=== PATIENT | female | born 1945 | race Caucasian/White ===

== ENCOUNTER 2022-03-02 12:29 | Inpatient (IN) | payer MEDICARE ==
[2022-03-02] MEDS ORDERED: Ondansetron ODT 4 MG TAB SL PRN (15:57)
[2022-03-02] MEDS ORDERED: Bisacodyl 5 MG TAB PO PRN (15:57)
[2022-03-02] MEDS ORDERED: Senokot S 8.6-50 MG TAB PO PRN (15:57)
[2022-03-02] MEDS ORDERED: Acetaminophen 325 MG TAB PO PRN (19:53)
[2022-03-02] MEDS: HYDROcodone/Acetaminophen 5/325 mg Tablet PO PRN (20:55)
[2022-03-02] MEDS: CeleCOXIB 100 MG CAP PO SCH (20:58)
[2022-03-02] MEDS: Aspirin 81 mg Enteric Coated Tablet PO SCH (20:59)
[2022-03-02] MEDS ORDERED: Famotidine 20 MG TAB PO SCH (21:00)
[2022-03-02] MEDS: Famotidine 20 MG TAB PO SCH (21:54)
[2022-03-03] MEDS: Levothyroxine Sodium 75 MCG TAB PO SCH (06:08)
[2022-03-03 08:55] LABS: SARS-CoV-2 NAA Rapid Test Not Detected (NotDetected)
[2022-03-03] MEDS: Aspirin 81 mg Enteric Coated Tablet PO SCH ×2 (09:14→21:14)
[2022-03-03] MEDS: Famotidine 20 MG TAB PO SCH ×2 (09:14→21:14)
[2022-03-03] MEDS: Rosuvastatin 10 MG TAB PO SCH (09:14)
[2022-03-03] MEDS: Spironolactone 25 MG TAB PO SCH (09:14)
[2022-03-03] MEDS: CeleCOXIB 100 MG CAP PO SCH ×2 (09:15→21:14)
[2022-03-04] MEDS: Levothyroxine Sodium 75 MCG TAB PO SCH (05:47)
[2022-03-04 05:55] LABS: #Basophils 0.1 thou/uL (0.0-0.2); #Eosinphils 0.2 thou/uL (0.0-0.7); #Lymphocytes 1.1 thou/uL (1.20-3.40); #Monocytes 0.6 thou/uL (0.11-0.59); #Neutrophils 9.1 thou/uL (1.40-6.50); %Basophils 0.9 % (0.0-1.0); %Lymphocytes 10.1 % (21.0-51.0); %Monocytes 5.7 % (0.0-10.0); %Neutrophils 81.3 % (42.0-75.0); Mean Corpuscular HGB CONC 33.1 g/dL (32.0-36.0); Mean Corpuscular Hemoglobin 32.6 pg (27.0-31.0); Mean Corpuscular Volume 98.4 fl (78.0-98.0); Platelet Count 188 10x3/uL (130-400); Red Blood Cell (RBC) Count 2.14 mill/uL (4.20-5.40); White Blood Cell (WBC) Count 11.2 10x3/uL (4.8-10.8)
[2022-03-04 06:12] LABS: ALT (SGPT) 22 U/L (8-55); AST (SGOT) 37 U/L (5-34); Albumin 2.6 g/dL (3.4-4.8); Alkaline Phosphatase 115 U/L (40-110); Anion Gap 10 mmol/L (10-20); BUN (Urea Nitrogen) 15 mg/dL (9.8-20.1); Bilirubin, Total 0.5 mg/dL (0.2-1.2); Calc. Creatinine Clearance 85 mL/min (70-130); Calcium 8.6 mg/dL (7.8-10.44); Carbon Dioxide 22 mmol/L (23-31); Chloride 107 mmol/L (98-107); Estimated GFR 89; Globulin 1.9 g/dL (2.4-3.5); Glucose 81 mg/dL (83-110); Potassium 3.7 mmol/L (3.5-5.1); Protein, Total 4.5 g/dL (5.8-8.1); Sodium 135 mmol/L (136-145)
[2022-03-04] MEDS: HYDROcodone/Acetaminophen 5/325 mg Tablet PO PRN (08:58)
[2022-03-04] MEDS: Spironolactone 25 MG TAB PO SCH (09:00)
[2022-03-04] MEDS: CeleCOXIB 100 MG CAP PO SCH ×2 (09:00→20:18)
[2022-03-04] MEDS: Famotidine 20 MG TAB PO SCH (09:01)
[2022-03-04] MEDS: Rosuvastatin 10 MG TAB PO SCH ×2 (09:01→20:17)
[2022-03-04] MEDS: Aspirin 81 mg Enteric Coated Tablet PO SCH ×2 (09:06→20:18)
[2022-03-04] MEDS: Ferrous Sulfate 325 MG TAB PO SCH (18:05)
[2022-03-05] MEDS: Levothyroxine Sodium 75 MCG TAB PO SCH (05:51)
[2022-03-05] MEDS: Aspirin 81 mg Enteric Coated Tablet PO SCH ×2 (09:09→20:49)
[2022-03-05] MEDS: Spironolactone 25 MG TAB PO SCH (09:09)
[2022-03-05] MEDS: Ferrous Sulfate 325 MG TAB PO SCH ×2 (09:09→16:38)
[2022-03-05] MEDS: CeleCOXIB 100 MG CAP PO SCH ×2 (09:09→20:47)
[2022-03-05] MEDS ORDERED: FLU VACC QS2022-23(65YR UP)/PF 240 MCG/0.7 ML SYRINGE IM ONE (19:00)
[2022-03-05] MEDS: Rosuvastatin 10 MG TAB PO SCH (20:49)
[2022-03-06] MEDS: Levothyroxine Sodium 75 MCG TAB PO SCH (05:43)
[2022-03-06] MEDS: Dronabinol 2.5 MG CAP PO SCH ×2 (08:00→16:38)
[2022-03-06] MEDS: HYDROcodone/Acetaminophen 5/325 mg Tablet PO PRN (08:14)
[2022-03-06] MEDS: CeleCOXIB 100 MG CAP PO SCH ×2 (08:16→21:18)
[2022-03-06] MEDS: Ferrous Sulfate 325 MG TAB PO SCH ×2 (08:16→18:11)
[2022-03-06] MEDS: Aspirin 81 mg Enteric Coated Tablet PO SCH ×2 (08:17→21:19)
[2022-03-06] MEDS: Spironolactone 25 MG TAB PO SCH (11:55)
[2022-03-06] MEDS: EXEMESTANE PO SCH (12:53)
[2022-03-06] MEDS: Rosuvastatin 10 MG TAB PO SCH (21:18)
[2022-03-07] MEDS: Levothyroxine Sodium 75 MCG TAB PO SCH (05:33)
[2022-03-07] MEDS: CeleCOXIB 100 MG CAP PO SCH ×2 (08:39→20:15)
[2022-03-07] MEDS: Ferrous Sulfate 325 MG TAB PO SCH ×2 (08:41→16:03)
[2022-03-07] MEDS: Spironolactone 25 MG TAB PO SCH (08:41)
[2022-03-07] MEDS: Dronabinol 2.5 MG CAP PO SCH ×2 (08:41→16:03)
[2022-03-07] MEDS: Aspirin 81 mg Enteric Coated Tablet PO SCH ×2 (08:41→20:15)
[2022-03-07 08:58] LABS: #Eosinphils 0.1 thou/uL (0.0-0.7); #Lymphocytes 0.7 thou/uL (1.20-3.40); #Monocytes 0.3 thou/uL (0.11-0.59); #Neutrophils 7.9 thou/uL (1.40-6.50); %Basophils 0.3 % (0.0-1.0); %Eosinophils 1.5 % (0.0-10.0); %Lymphocytes 7.7 % (21.0-51.0); %Monocytes 3.2 % (0.0-10.0); %Neutrophils 87.2 % (42.0-75.0); Hemoglobin 8.3 g/dL (12.0-16.0); Mean Corpuscular Hemoglobin 33.3 pg (27.0-31.0); Mean Platelet Volume 6.5 fL (7.4-10.4); Platelet Count 212 10x3/uL (130-400); RBC Distribution Width 19.7 % (11.5-14.5); Red Blood Cell (RBC) Count 2.49 mill/uL (4.20-5.40); White Blood Cell (WBC) Count 9.1 10x3/uL (4.8-10.8)
[2022-03-07 09:30] LABS: Platelet Morphology Comment Appears Adequate
[2022-03-07 09:31] LABS: Anisocytosis SLIGHT = 6-15 cells (100X) (0-5/hpf); Macrocytosis SLIGHT = 6-15 cells (100X) (0-5/hpf); Microcytosis SLIGHT = 6-15 cells (100X) (0-5/hpf)
[2022-03-07 09:32] LABS: Hypochromia SLIGHT = 6-15 cells (100X) (0-5/hpf); Polychromasia SLIGHT = 2-3 cells (100X) (0-2/hpf)
[2022-03-07] MEDS: EXEMESTANE PO SCH (12:29)
[2022-03-07] MEDS: HYDROcodone/Acetaminophen 5/325 mg Tablet PO PRN (16:02)
[2022-03-07] MEDS: Rosuvastatin 10 MG TAB PO SCH (20:15)
[2022-03-08] MEDS: Levothyroxine Sodium 75 MCG TAB PO SCH (06:33)
[2022-03-08] MEDS: CeleCOXIB 100 MG CAP PO SCH ×2 (07:56→22:00)
[2022-03-08] MEDS: Aspirin 81 mg Enteric Coated Tablet PO SCH ×2 (07:58→22:00)
[2022-03-08] MEDS: Dronabinol 2.5 MG CAP PO SCH ×2 (07:58→16:54)
[2022-03-08] MEDS: Ferrous Sulfate 325 MG TAB PO SCH ×2 (07:58→16:54)
[2022-03-08] MEDS: Spironolactone 25 MG TAB PO SCH (08:01)
[2022-03-08] MEDS: HYDROcodone/Acetaminophen 5/325 mg Tablet PO PRN (10:49)
[2022-03-08] MEDS: EXEMESTANE PO SCH (12:08)
[2022-03-08] MEDS: Rosuvastatin 10 MG TAB PO SCH (22:00)
[2022-03-09] MEDS: Levothyroxine Sodium 75 MCG TAB PO SCH (06:06)
[2022-03-09] MEDS: Ferrous Sulfate 325 MG TAB PO SCH ×2 (07:35→16:52)
[2022-03-09] MEDS: Aspirin 81 mg Enteric Coated Tablet PO SCH ×2 (07:36→20:36)
[2022-03-09] MEDS: CeleCOXIB 100 MG CAP PO SCH ×2 (07:36→20:35)
[2022-03-09] MEDS: Dronabinol 2.5 MG CAP PO SCH ×2 (07:46→16:52)
[2022-03-09] MEDS: EXEMESTANE PO SCH (14:47)
[2022-03-09] MEDS: Rosuvastatin 10 MG TAB PO SCH (20:36)
[2022-03-10] MEDS: Levothyroxine Sodium 75 MCG TAB PO SCH (06:29)
[2022-03-10] MEDS: CeleCOXIB 100 MG CAP PO SCH ×2 (07:23→20:28)
[2022-03-10] MEDS: Ferrous Sulfate 325 MG TAB PO SCH ×2 (07:23→16:07)
[2022-03-10] MEDS: Aspirin 81 mg Enteric Coated Tablet PO SCH ×2 (07:23→20:28)
[2022-03-10] MEDS: Dronabinol 2.5 MG CAP PO SCH ×2 (07:23→16:08)
[2022-03-10] MEDS: EXEMESTANE PO SCH (12:37)
[2022-03-10] MEDS: Rosuvastatin 10 MG TAB PO SCH (20:28)
[2022-03-11] MEDS: Levothyroxine Sodium 75 MCG TAB PO SCH (06:17)
[2022-03-11] MEDS: Ferrous Sulfate 325 MG TAB PO SCH ×2 (08:08→16:10)
[2022-03-11] MEDS: CeleCOXIB 100 MG CAP PO SCH ×2 (08:09→20:57)
[2022-03-11] MEDS: Dronabinol 2.5 MG CAP PO SCH ×2 (08:10→16:10)
[2022-03-11] MEDS: Aspirin 81 mg Enteric Coated Tablet PO SCH ×2 (08:15→20:58)
[2022-03-11] MEDS: EXEMESTANE PO SCH (13:03)
[2022-03-11] MEDS: Rosuvastatin 10 MG TAB PO SCH (20:57)
[2022-03-12] MEDS: Levothyroxine Sodium 75 MCG TAB PO SCH (05:29)
[2022-03-12] MEDS: Dronabinol 2.5 MG CAP PO SCH ×2 (07:35→17:13)
[2022-03-12] MEDS: CeleCOXIB 100 MG CAP PO SCH ×2 (08:43→20:43)
[2022-03-12] MEDS: Ferrous Sulfate 325 MG TAB PO SCH ×2 (08:44→16:45)
[2022-03-12] MEDS: Aspirin 81 mg Enteric Coated Tablet PO SCH ×2 (08:44→20:43)
[2022-03-12] MEDS: EXEMESTANE PO SCH (11:54)
[2022-03-12] MEDS: Rosuvastatin 10 MG TAB PO SCH (20:43)
[2022-03-13] MEDS: Levothyroxine Sodium 75 MCG TAB PO SCH (05:52)
[2022-03-13] MEDS: Ferrous Sulfate 325 MG TAB PO SCH ×2 (07:43→17:33)
[2022-03-13] MEDS: Aspirin 81 mg Enteric Coated Tablet PO SCH ×2 (07:43→21:18)
[2022-03-13] MEDS: Dronabinol 2.5 MG CAP PO SCH ×2 (07:43→17:00)
[2022-03-13] MEDS: CeleCOXIB 100 MG CAP PO SCH ×2 (07:44→21:18)
[2022-03-13 11:43] LABS: Anion Gap 14 mmol/L (10-20); BUN (Urea Nitrogen) 15 mg/dL (9.8-20.1); Calc. Creatinine Clearance 76 mL/min (70-130); Calcium 8.7 mg/dL (7.8-10.44); Carbon Dioxide 17 mmol/L (23-31); Chloride 108 mmol/L (98-107); Estimated GFR 79; Glucose 83 mg/dL (83-110); Potassium 4.4 mmol/L (3.5-5.1); Sodium 135 mmol/L (136-145)
[2022-03-13] MEDS: EXEMESTANE PO SCH (12:14)
[2022-03-13] MEDS: Rosuvastatin 10 MG TAB PO SCH (21:18)
[2022-03-14] MEDS: Levothyroxine Sodium 75 MCG TAB PO SCH (05:48)
[2022-03-14] MEDS: Ferrous Sulfate 325 MG TAB PO SCH ×2 (08:37→16:46)
[2022-03-14] MEDS: Dronabinol 2.5 MG CAP PO SCH ×2 (08:37→16:46)
[2022-03-14] MEDS: CeleCOXIB 100 MG CAP PO SCH ×2 (08:37→20:38)
[2022-03-14] MEDS: Aspirin 81 mg Enteric Coated Tablet PO SCH ×2 (08:37→20:38)
[2022-03-14] MEDS: EXEMESTANE PO SCH (11:09)
[2022-03-14] MEDS: Acetaminophen 325 MG TAB PO PRN (18:05)
[2022-03-14] MEDS: Rosuvastatin 10 MG TAB PO SCH (20:38)
[2022-03-15] MEDS: Levothyroxine Sodium 75 MCG TAB PO SCH (05:49)
[2022-03-15] MEDS: Ferrous Sulfate 325 MG TAB PO SCH ×2 (07:21→16:36)
[2022-03-15] MEDS: Dronabinol 2.5 MG CAP PO SCH ×2 (07:21→16:36)
[2022-03-15] MEDS: CeleCOXIB 100 MG CAP PO SCH ×2 (08:04→20:28)
[2022-03-15] MEDS: Aspirin 81 mg Enteric Coated Tablet PO SCH ×2 (08:04→20:30)
[2022-03-15] MEDS: EXEMESTANE PO SCH (11:52)
[2022-03-15] MEDS: Rosuvastatin 10 MG TAB PO SCH (20:30)
[2022-03-16] MEDS: Levothyroxine Sodium 75 MCG TAB PO SCH (06:00)
[2022-03-16] MEDS: Ferrous Sulfate 325 MG TAB PO SCH ×2 (08:45→17:30)
[2022-03-16] MEDS: CeleCOXIB 100 MG CAP PO SCH ×2 (08:46→20:14)
[2022-03-16] MEDS: Acetaminophen 325 MG TAB PO PRN (08:51)
[2022-03-16] MEDS: Dronabinol 2.5 MG CAP PO SCH ×2 (08:51→17:30)
[2022-03-16] MEDS: Aspirin 81 mg Enteric Coated Tablet PO SCH ×2 (08:51→20:14)
[2022-03-16] MEDS: EXEMESTANE PO SCH (12:40)
[2022-03-16] MEDS: HYDROcodone/Acetaminophen 5/325 mg Tablet PO PRN (15:27)
[2022-03-16] MEDS: Rosuvastatin 10 MG TAB PO SCH (20:14)
[2022-03-17] MEDS: Levothyroxine Sodium 75 MCG TAB PO SCH (06:09)
[2022-03-17] MEDS: CeleCOXIB 100 MG CAP PO SCH ×2 (10:24→21:11)
[2022-03-17] MEDS: Ferrous Sulfate 325 MG TAB PO SCH ×2 (10:24→16:42)
[2022-03-17] MEDS: Dronabinol 2.5 MG CAP PO SCH ×2 (10:25→16:42)
[2022-03-17] MEDS: Aspirin 81 mg Enteric Coated Tablet PO SCH ×2 (10:25→21:11)
[2022-03-17] MEDS: Acetaminophen 325 MG TAB PO PRN (10:29)
[2022-03-17] MEDS: EXEMESTANE PO SCH (11:59)
[2022-03-17] MEDS: Rosuvastatin 10 MG TAB PO SCH (21:11)
[2022-03-18] MEDS: Levothyroxine Sodium 75 MCG TAB PO SCH (06:12)
[2022-03-18] MEDS: Acetaminophen 325 MG TAB PO PRN (07:57)
[2022-03-18] MEDS: Aspirin 81 mg Enteric Coated Tablet PO SCH ×2 (08:00→21:01)
[2022-03-18] MEDS: CeleCOXIB 100 MG CAP PO SCH ×2 (08:00→21:01)
[2022-03-18] MEDS: Ferrous Sulfate 325 MG TAB PO SCH ×2 (08:01→17:14)
[2022-03-18] MEDS: Dronabinol 2.5 MG CAP PO SCH ×2 (08:01→17:14)
[2022-03-18] MEDS: EXEMESTANE PO SCH (11:08)
[2022-03-18] MEDS: Rosuvastatin 10 MG TAB PO SCH (21:01)
[2022-03-19] MEDS: Levothyroxine Sodium 75 MCG TAB PO SCH (05:51)
[2022-03-19] MEDS: Dronabinol 2.5 MG CAP PO SCH ×2 (08:01→16:51)
[2022-03-19] MEDS: CeleCOXIB 100 MG CAP PO SCH ×2 (08:01→20:36)
[2022-03-19] MEDS: Aspirin 81 mg Enteric Coated Tablet PO SCH ×2 (08:03→20:37)
[2022-03-19] MEDS: Ferrous Sulfate 325 MG TAB PO SCH ×2 (08:03→16:51)
[2022-03-19 08:48] LABS: Anion Gap 12 mmol/L (10-20); BUN (Urea Nitrogen) 14 mg/dL (9.8-20.1); Calc. Creatinine Clearance 72 mL/min (70-130); Carbon Dioxide 24 mmol/L (23-31); Chloride 107 mmol/L (98-107); Estimated GFR 73; Glucose 90 mg/dL (83-110); Potassium 4.5 mmol/L (3.5-5.1); Sodium 138 mmol/L (136-145)
[2022-03-19 08:52] LABS: #Basophils 0.1 thou/uL (0.0-0.2); #Eosinphils 0.3 thou/uL (0.0-0.7); #Lymphocytes 1.3 thou/uL (1.20-3.40); #Monocytes 0.4 thou/uL (0.11-0.59); #Neutrophils 3.7 thou/uL (1.40-6.50); %Basophils 1.3 % (0.0-1.0); %Lymphocytes 21.6 % (21.0-51.0); %Monocytes 7.5 % (0.0-10.0); %Neutrophils 63.6 % (42.0-75.0); Hemoglobin 9.7 g/dL (12.0-16.0); Mean Corpuscular HGB CONC 30.5 g/dL (32.0-36.0); Mean Corpuscular Hemoglobin 32.1 pg (27.0-31.0); Mean Platelet Volume 6.1 fL (7.4-10.4); Platelet Count 287 10x3/uL (130-400); RBC Distribution Width 17.7 % (11.5-14.5); Red Blood Cell (RBC) Count 3.01 mill/uL (4.20-5.40); White Blood Cell (WBC) Count 5.8 10x3/uL (4.8-10.8)
[2022-03-19] MEDS: Acetaminophen 325 MG TAB PO PRN (10:01)
[2022-03-19] MEDS: EXEMESTANE PO SCH (12:30)
[2022-03-19] MEDS: Rosuvastatin 10 MG TAB PO SCH (20:35)
[2022-03-20] MEDS: Levothyroxine Sodium 75 MCG TAB PO SCH (05:36)
[2022-03-20] MEDS: Dronabinol 2.5 MG CAP PO SCH ×2 (08:32→16:48)
[2022-03-20] MEDS: Aspirin 81 mg Enteric Coated Tablet PO SCH ×2 (08:32→20:48)
[2022-03-20] MEDS: Ferrous Sulfate 325 MG TAB PO SCH ×2 (08:32→16:48)
[2022-03-20] MEDS: CeleCOXIB 100 MG CAP PO SCH ×2 (08:33→20:48)
[2022-03-20] MEDS: EXEMESTANE PO SCH (12:30)
[2022-03-20] MEDS: Rosuvastatin 10 MG TAB PO SCH (20:48)
[2022-03-21] MEDS: Levothyroxine Sodium 75 MCG TAB PO SCH (05:58)
[2022-03-21] MEDS: Ferrous Sulfate 325 MG TAB PO SCH ×2 (08:06→16:38)
[2022-03-21] MEDS: Dronabinol 2.5 MG CAP PO SCH ×2 (08:06→16:38)
[2022-03-21] MEDS: CeleCOXIB 100 MG CAP PO SCH ×2 (08:06→21:10)
[2022-03-21] MEDS: Aspirin 81 mg Enteric Coated Tablet PO SCH ×2 (08:07→21:11)
[2022-03-21] MEDS: Acetaminophen 325 MG TAB PO PRN ×2 (08:37→15:06)
[2022-03-21] MEDS: EXEMESTANE PO SCH (12:06)
[2022-03-21] MEDS: Rosuvastatin 10 MG TAB PO SCH (21:11)
[2022-03-22 04:00] VITALS: BMI 35.0
[2022-03-22] MEDS: Levothyroxine Sodium 75 MCG TAB PO SCH (06:06)
[2022-03-22] MEDS: CeleCOXIB 100 MG CAP PO SCH ×2 (07:50→20:38)
[2022-03-22] MEDS: Ferrous Sulfate 325 MG TAB PO SCH ×2 (07:50→16:29)
[2022-03-22] MEDS: Aspirin 81 mg Enteric Coated Tablet PO SCH ×2 (07:50→20:38)
[2022-03-22] MEDS: Dronabinol 2.5 MG CAP PO SCH ×2 (07:50→16:29)
[2022-03-22] MEDS: Acetaminophen 325 MG TAB PO PRN ×2 (07:53→15:44)
[2022-03-22] MEDS: EXEMESTANE PO SCH (11:48)
[2022-03-22] MEDS: Rosuvastatin 10 MG TAB PO SCH (20:37)
[2022-03-23] MEDS: Levothyroxine Sodium 75 MCG TAB PO SCH (05:22)
[2022-03-23] MEDS: CeleCOXIB 100 MG CAP PO SCH ×2 (08:43→20:49)
[2022-03-23] MEDS: Dronabinol 2.5 MG CAP PO SCH ×2 (08:45→17:50)
[2022-03-23] MEDS: Aspirin 81 mg Enteric Coated Tablet PO SCH ×2 (08:45→20:49)
[2022-03-23] MEDS: Ferrous Sulfate 325 MG TAB PO SCH ×2 (08:45→17:50)
[2022-03-23] MEDS: EXEMESTANE PO SCH (12:18)
[2022-03-23 16:38] LABS: Bilirubin Negative (Negative); Blood, Urine Small (Negative); CAUTI Indications for Culture Dysuria,urgency,freq; Clarity Cloudy (Clear); Glucose, Urine (Dipstick) Negative (Negative); Ketone, Urine Negative (Negative); Leukocyte Moderate (Negative); Nitrite Negative (Negative); Protein, Urine (Dipstick) Trace mg/dL (Neg-Trace); Urobilinogen 0.2 mg/dL (Less than 2); pH, Urine 5.5 (5.0-9.0)
[2022-03-23 16:48] LABS: Bacteria/HPF 2+ HPF (None Seen); Squamous Epithelial 0-3 HPF (0-3)
[2022-03-23 16:49] LABS: Calcium Oxalate Crystals 1+ HPF (None Seen)
[2022-03-23] MEDS: Cephalexin 500 MG CAP PO SCH (20:50)
[2022-03-23] MEDS: Rosuvastatin 10 MG TAB PO SCH (20:50)
[2022-03-24] MEDS: Levothyroxine Sodium 75 MCG TAB PO SCH (05:33)
[2022-03-24] MEDS: CeleCOXIB 100 MG CAP PO SCH ×2 (07:17→20:16)
[2022-03-24] MEDS: Dronabinol 2.5 MG CAP PO SCH ×2 (07:17→17:01)
[2022-03-24] MEDS: Aspirin 81 mg Enteric Coated Tablet PO SCH ×2 (07:18→20:15)
[2022-03-24] MEDS: Ferrous Sulfate 325 MG TAB PO SCH ×2 (07:18→17:01)
[2022-03-24] MEDS: Cephalexin 500 MG CAP PO SCH ×2 (07:18→20:16)
[2022-03-24] MEDS: EXEMESTANE PO SCH (12:09)
[2022-03-24] MEDS: Rosuvastatin 10 MG TAB PO SCH (20:15)
[2022-03-25] MEDS: Levothyroxine Sodium 75 MCG TAB PO SCH (05:51)
[2022-03-25 06:06] LABS: #Basophils 0.1 thou/uL (0.0-0.2); #Eosinphils 0.2 thou/uL (0.0-0.7); #Lymphocytes 1.1 thou/uL (1.20-3.40); #Monocytes 0.4 thou/uL (0.11-0.59); #Neutrophils 3.2 thou/uL (1.40-6.50); %Basophils 1.5 % (0.0-1.0); %Eosinophils 4.9 % (0.0-10.0); %Lymphocytes 22.6 % (21.0-51.0); %Monocytes 7.9 % (0.0-10.0); %Neutrophils 63.1 % (42.0-75.0); Hemoglobin 8.9 g/dL (12.0-16.0); Mean Corpuscular HGB CONC 30.9 g/dL (32.0-36.0); Mean Corpuscular Hemoglobin 32.2 pg (27.0-31.0); Mean Platelet Volume 6.7 fL (7.4-10.4); Platelet Count 210 10x3/uL (130-400); RBC Distribution Width 16.9 % (11.5-14.5); Red Blood Cell (RBC) Count 2.77 mill/uL (4.20-5.40)
[2022-03-25 06:21] LABS: Anion Gap 11 mmol/L (10-20); BUN (Urea Nitrogen) 13 mg/dL (9.8-20.1); Calc. Creatinine Clearance 76 mL/min (70-130); Calcium 8.7 mg/dL (7.8-10.44); Carbon Dioxide 22 mmol/L (23-31); Chloride 109 mmol/L (98-107); Estimated GFR 78; Glucose 90 mg/dL (83-110); Potassium 3.8 mmol/L (3.5-5.1); Sodium 138 mmol/L (136-145)
[2022-03-25] MEDS: Ferrous Sulfate 325 MG TAB PO SCH ×2 (07:31→17:41)
[2022-03-25] MEDS: CeleCOXIB 100 MG CAP PO SCH ×2 (07:31→20:19)
[2022-03-25] MEDS: Dronabinol 2.5 MG CAP PO SCH ×2 (07:31→16:13)
[2022-03-25] MEDS: Aspirin 81 mg Enteric Coated Tablet PO SCH ×2 (07:32→20:21)
[2022-03-25] MEDS: Cephalexin 500 MG CAP PO SCH ×2 (07:32→20:21)
[2022-03-25] MEDS: EXEMESTANE PO SCH (12:01)
[2022-03-25] MEDS: Acetaminophen 325 MG TAB PO PRN (16:12)
[2022-03-25] MEDS: Rosuvastatin 10 MG TAB PO SCH (20:20)
[2022-03-26] MEDS: Levothyroxine Sodium 75 MCG TAB PO SCH (05:39)
[2022-03-26] MEDS: Dronabinol 2.5 MG CAP PO SCH ×2 (08:27→17:07)
[2022-03-26] MEDS: CeleCOXIB 100 MG CAP PO SCH ×2 (08:27→20:42)
[2022-03-26] MEDS: Cephalexin 500 MG CAP PO SCH ×2 (08:28→20:45)
[2022-03-26] MEDS: Aspirin 81 mg Enteric Coated Tablet PO SCH ×2 (08:28→20:42)
[2022-03-26] MEDS: Ferrous Sulfate 325 MG TAB PO SCH ×2 (08:33→17:07)
[2022-03-26] MEDS: EXEMESTANE PO SCH (12:01)
[2022-03-26] MEDS: Rosuvastatin 10 MG TAB PO SCH (20:45)
[2022-03-27] MEDS: Levothyroxine Sodium 75 MCG TAB PO SCH (06:16)
[2022-03-27] MEDS: Cephalexin 500 MG CAP PO SCH ×2 (09:20→21:27)
[2022-03-27] MEDS: Aspirin 81 mg Enteric Coated Tablet PO SCH ×2 (09:20→21:27)
[2022-03-27] MEDS: Dronabinol 2.5 MG CAP PO SCH ×2 (09:20→17:36)
[2022-03-27] MEDS: CeleCOXIB 100 MG CAP PO SCH ×2 (09:20→21:28)
[2022-03-27] MEDS: Ferrous Sulfate 325 MG TAB PO SCH ×2 (09:20→17:36)
[2022-03-27] MEDS: EXEMESTANE PO SCH (11:42)
[2022-03-27] MEDS: Rosuvastatin 10 MG TAB PO SCH (21:27)
[2022-03-28] MEDS: Levothyroxine Sodium 75 MCG TAB PO SCH (05:51)
[2022-03-28] MEDS: CeleCOXIB 100 MG CAP PO SCH ×2 (07:50→20:24)
[2022-03-28] MEDS: Cephalexin 500 MG CAP PO SCH (07:51)
[2022-03-28] MEDS: Aspirin 81 mg Enteric Coated Tablet PO SCH ×2 (07:51→20:24)
[2022-03-28] MEDS: Dronabinol 2.5 MG CAP PO SCH ×2 (07:51→17:18)
[2022-03-28] MEDS: Ferrous Sulfate 325 MG TAB PO SCH ×2 (07:52→17:18)
[2022-03-28] MEDS: EXEMESTANE PO SCH (12:39)
[2022-03-28] MEDS: Acetaminophen 325 MG TAB PO PRN (15:18)
[2022-03-28] MEDS: Rosuvastatin 10 MG TAB PO SCH (20:26)
[2022-03-29] MEDS: Levothyroxine Sodium 75 MCG TAB PO SCH (05:39)
[2022-03-29] MEDS: Dronabinol 2.5 MG CAP PO SCH ×2 (07:45→16:44)
[2022-03-29] MEDS: CeleCOXIB 100 MG CAP PO SCH ×2 (09:10→21:50)
[2022-03-29] MEDS: Aspirin 81 mg Enteric Coated Tablet PO SCH ×2 (09:10→21:51)
[2022-03-29] MEDS: Ferrous Sulfate 325 MG TAB PO SCH ×2 (09:11→16:44)
[2022-03-29] MEDS: EXEMESTANE PO SCH (12:23)
[2022-03-29] MEDS: Rosuvastatin 10 MG TAB PO SCH (21:51)
[2022-03-30] MEDS: Levothyroxine Sodium 75 MCG TAB PO SCH (05:49)
[2022-03-30] MEDS: CeleCOXIB 100 MG CAP PO SCH ×2 (07:43→21:02)
[2022-03-30] MEDS: Aspirin 81 mg Enteric Coated Tablet PO SCH ×2 (07:43→21:03)
[2022-03-30] MEDS: Ferrous Sulfate 325 MG TAB PO SCH ×2 (07:43→16:34)
[2022-03-30] MEDS: Dronabinol 2.5 MG CAP PO SCH ×2 (07:44→16:34)
[2022-03-30] MEDS: EXEMESTANE PO SCH (12:15)
[2022-03-30] MEDS: Acetaminophen 325 MG TAB PO PRN (12:20)
[2022-03-30] MEDS: Rosuvastatin 10 MG TAB PO SCH (21:03)
[2022-03-31] MEDS: Levothyroxine Sodium 75 MCG TAB PO SCH (05:42)
[2022-03-31] MEDS: HYDROcodone/Acetaminophen 5/325 mg Tablet PO PRN (06:23)
[2022-03-31] MEDS: Ferrous Sulfate 325 MG TAB PO SCH ×2 (08:11→17:11)
[2022-03-31] MEDS: Dronabinol 2.5 MG CAP PO SCH ×2 (08:11→17:11)
[2022-03-31] MEDS: Aspirin 81 mg Enteric Coated Tablet PO SCH ×2 (08:11→20:16)
[2022-03-31] MEDS: CeleCOXIB 100 MG CAP PO SCH ×2 (08:11→20:15)
[2022-03-31] MEDS: EXEMESTANE PO SCH (12:11)
[2022-03-31] MEDS: Acetaminophen 325 MG TAB PO PRN (17:14)
[2022-03-31] MEDS: Rosuvastatin 10 MG TAB PO SCH (20:16)
[2022-04-01] MEDS: Levothyroxine Sodium 75 MCG TAB PO SCH (05:13)
[2022-04-01 06:04] LABS: #Basophils 0.1 thou/uL (0.0-0.2); #Eosinphils 0.3 thou/uL (0.0-0.7); #Lymphocytes 1.2 thou/uL (1.20-3.40); #Monocytes 0.4 thou/uL (0.11-0.59); #Neutrophils 2.4 thou/uL (1.40-6.50); %Basophils 1.9 % (0.0-1.0); %Eosinophils 7.1 % (0.0-10.0); %Lymphocytes 27.3 % (21.0-51.0); %Monocytes 8.2 % (0.0-10.0); %Neutrophils 55.4 % (42.0-75.0); Hemoglobin 9.8 g/dL (12.0-16.0); Mean Corpuscular HGB CONC 30.8 g/dL (32.0-36.0); Mean Platelet Volume 7.5 fL (7.4-10.4); Platelet Count 184 10x3/uL (130-400); RBC Distribution Width 16.3 % (11.5-14.5); Red Blood Cell (RBC) Count 3.06 mill/uL (4.20-5.40); White Blood Cell (WBC) Count 4.4 10x3/uL (4.8-10.8)
[2022-04-01 06:18] LABS: Anion Gap 12 mmol/L (10-20); BUN (Urea Nitrogen) 15 mg/dL (9.8-20.1); Calc. Creatinine Clearance 69 mL/min (70-130); Calcium 9.1 mg/dL (7.8-10.44); Carbon Dioxide 23 mmol/L (23-31); Chloride 110 mmol/L (98-107); Estimated GFR 71; Glucose 79 mg/dL (83-110); Potassium 3.9 mmol/L (3.5-5.1); Sodium 141 mmol/L (136-145)
[2022-04-01] MEDS: Dronabinol 2.5 MG CAP PO SCH ×2 (07:13→16:08)
[2022-04-01] MEDS: Ferrous Sulfate 325 MG TAB PO SCH ×2 (07:13→16:08)
[2022-04-01] MEDS: CeleCOXIB 100 MG CAP PO SCH ×2 (08:03→21:27)
[2022-04-01] MEDS: Aspirin 81 mg Enteric Coated Tablet PO SCH ×2 (08:04→21:29)
[2022-04-01] MEDS: EXEMESTANE PO SCH (11:41)
[2022-04-01] MEDS: Acetaminophen 325 MG TAB PO PRN (18:18)
[2022-04-01] MEDS: Rosuvastatin 10 MG TAB PO SCH (21:30)
[2022-04-02] MEDS: Levothyroxine Sodium 75 MCG TAB PO SCH (06:22)
[2022-04-02] MEDS: Dronabinol 2.5 MG CAP PO SCH ×2 (07:41→16:28)
[2022-04-02] MEDS: Aspirin 81 mg Enteric Coated Tablet PO SCH ×2 (07:42→20:38)
[2022-04-02] MEDS: CeleCOXIB 100 MG CAP PO SCH ×2 (07:42→20:36)
[2022-04-02] MEDS: Ferrous Sulfate 325 MG TAB PO SCH ×2 (07:42→16:28)
[2022-04-02] MEDS: EXEMESTANE PO SCH (11:10)
[2022-04-02] MEDS: Rosuvastatin 10 MG TAB PO SCH (20:38)
[2022-04-03] MEDS: Levothyroxine Sodium 75 MCG TAB PO SCH (05:26)
[2022-04-03] MEDS: Aspirin 81 mg Enteric Coated Tablet PO SCH (07:47)
[2022-04-03] MEDS: Dronabinol 2.5 MG CAP PO SCH (07:47)
[2022-04-03] MEDS: CeleCOXIB 100 MG CAP PO SCH (07:47)
[2022-04-03] MEDS: Ferrous Sulfate 325 MG TAB PO SCH (07:48)
[2022-04-03 09:15] VITALS: BP 116/60; TEMP 98
== END 2022-04-03 11:14 | disposition home or self-care (01) | DRG 560 ==
LOC: NAV ACUTE 17:47
PROVIDERS: ADMIT Family Medicine; ATTEND Family Medicine
DX: M84.551D Pathological fracture in neoplastic disease, right femur, subsequent encounter for fracture with routine healing (principal); D62 Acute posthemorrhagic anemia; E87.1 Hypo-osmolality and hyponatremia; N39.0 Urinary tract infection, site not specified; Z20.822 Contact with and (suspected) exposure to COVID-19; I10 Essential (primary) hypertension; R53.81 Other malaise; E78.5 Hyperlipidemia, unspecified; K64.9 Unspecified hemorrhoids; C50.919 Malignant neoplasm of unspecified site of unspecified female breast; E03.9 Hypothyroidism, unspecified; Z79.82 Long term (current) use of aspirin; Z79.890 Hormone replacement therapy; Z79.899 Other long term (current) drug therapy; Z90.12 Acquired absence of left breast and nipple; Z88.6 Allergy status to analgesic agent; Z91.040 Latex allergy status; Z91.018 Allergy to other foods; Z88.8 Allergy status to other drugs, medicaments and biological substances
CPT/HCPCS: 36415; 80048; 80053; 81001; 85025; 87811; 90471; 90662; G0008; Q0167; U0002